=== PATIENT | male | born 1995 | race Caucasian/White ===

== ENCOUNTER 2017-10-07 07:43 | Emergency (ER) | payer BC, OTHER ==
[2017-10-07 07:59] VITALS: BP 131/72
[2017-10-07] MEDS ORDERED: Tetan/Diph/Pertus SYR(Tdap)* 0.5 ML SYR(BOOSTRIX) use SYR IM ONE (08:32)
--- NOTE | 2017-10-07 08:33 | UC ---
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 LATER THAT EVENING REALIZED THERE WAS A PIECE OF METAL IN HIS EYE. HAD BEEN RUBBING IT ALL DAY AND THEN TRIED TO GET IT OUT WITH A QTIP. PT HAS SOME CLEAR DRAINAGE. DENIES ANY VISUAL DISTURBANCES, NAUSEA OR MARSH. UNKNOWN DATE OF LAST TETANUS. - History of Current Complaint Chief Complaint: UCEye Stated Complaint: EYE INJURY Time Seen by Provider: 10/07/17 08:11 Hx Obtained From: Patient Onset/Duration: Sudden Onset, Lasting Days - 1 DAY, Still Present Timing: Constant Severity Initially: Moderate Severity Currently: Moderate Pain Intensity: 3 Pain Scale Used: 0-10 Numeric Character: Foreign Body Sensation Aggravating Factor(s): Blinking Alleviating Factor(s): Nothing Associated Signs And Symptoms: Positive: Drainage (Clear). Negative: Photophobia, Vision Impairment Bilateral - Allergies/Home Medications Allergies/Adverse Reactions: Allergies Allergy/AdvReac Type Severity Reaction Status Date / Time No Known Allergies Allergy Verified 10/07/17 07:53 Home Medications: Home Medications NK [No Home Medications Reported] 10/07/17 [History Confirmed 10/07/17] PMH/Surg Hx/FS Hx/Imm Hx Previously Healthy: Yes - Surgical History Surgical History: None - Family History Known Family History: Positive: Hypertension - Social History Alcohol Use: Occasionally Substance Use Type: None Smoking Status (MU): Never Smoked Tobacco Review of Systems Constitutional: Negative Eyes: Drainage, Eye Redness, Other - LEFT EYE FB Respiratory: Negative Cardiovascular: Negative Gastrointestinal: Negative All Other Systems Reviewed And Are Negative: Yes Physical Exam Triage Information Reviewed: Yes Appearance: Well-Appearing, Well-Nourished Vital Signs: Initial Vital Signs Temp 98.3 F 10/07/17 07:54 Pulse 69 10/07/17 07:54 Resp 16 10/07/17 07:54 BP 131/72 10/07/17 07:54 Pulse Ox 100 10/07/17 07:54 Vital Signs Reviewed: Yes Eyes: Positive: Conjunctiva Inflamed - LEFT, Other: - PERRL, EOMI. FB NOTED LEFT CORNEA MEDIALLY. Negative: Discharge ENT: Positive: Hearing grossly normal Neck: Positive: Supple Respiratory: Positive: No respiratory distress, No accessory muscle use Cardiovascular: Positive: Pulses Normal Abdomen Description: Positive: Soft Musculoskeletal: Positive: No Edema Neurological: Positive: Alert Psychological: Positive: Age Appropriate Behavior Skin: Negative: rashes Eye Complaint Course/Dx - Differential Dx/Diagnosis Provider Diagnoses: LEFT EYE FB Discharge - Discharge Plan Condition: Stable Disposition: OTHER Discharge Disposition Comment: GO DIRECTLY TO DR. GOOD'S OFFICE FROM HERE Patient Education Materials: Eye Foreign Body (ED) Forms: *Work Release Referrals: Diana Kapadia MD [Primary Care Provider] - If Needed Richard Good MD [Medical Doctor] - Additional Instructions: GO DIRECTLY TO DR. GOOD'S OFFICE FOR TREATMENT. TETANUS IMMUNIZATION GIVEN (TDAP): You have been given an immunization against tetanus. Please record this in your records. In general, a booster is needed only once every 10 years. The tetanus shot protects against tetanus or "lockjaw," which is a complication of certain wound infections (the tetanus shot cannot protect against the actual infection). The immunization site may become warm and red due to local reaction. If this occurs, apply warm compresses and take aspirin or ibuprofen to reduce inflammation and discomfort. Return for evaluation if the reaction becomes severe.
== END 2017-10-07 08:52 ==
LOC: UCEAST 07:43
DX: T15.02XA Foreign body in cornea, left eye, initial encounter (principal); X58.XXXA Exposure to other specified factors, initial encounter; Y93.9 Activity, unspecified; Y92.9 Unspecified place or not applicable; Z23 Encounter for immunization
CPT/HCPCS: 90471; 90715; 99201; G0463